=== PATIENT | female | born 2005 | race Two or more races ===

== ENCOUNTER 2025-03-15 07:05 | Inpatient (IN) | payer BC ==
[2025-03-15] MEDS ORDERED: Sodium Chloride 0.9% 10 ML Syringe FLUSH PRN ×2 (08:21→20:52)
[2025-03-15] MEDS ORDERED: Ondansetron 4 MG/2 ML SDV IVPUSH PRN ×2 (08:21→22:13)
[2025-03-15] MEDS ORDERED: Oxytocin/0.9 % Sodium Chloride 30 UNIT/500 ML BAG IV SCH (08:30)
[2025-03-15] MEDS: Nalbuphine 10 MG/1 ML Vial IVPUSH PRN (08:34)
[2025-03-15] MEDS: Sodium Chloride 0.9% 10 ML Syringe FLUSH SCH (08:35)
[2025-03-15 08:56] LABS: MEAN PLATELET VOLUME 10.3 fl (9.4-12.3); NRBC ABSOLUTE 0.02 (0.00-0.02); NRBC PERCENT 0.1 % (0.0-0.2); PLATELET COUNT,PLT 265 K/mm3 (150-400); RED BLOOD CELL COUNT 3.97 M/mm3 (4.10-5.30); WHITE BLOOD CELL COUNT,WBC 22.76 K/mm3 (3.9-11.3)
[2025-03-15] MEDS: Lactated Ringers 1,000 ML IV SCH (15:10)
[2025-03-15] MEDS: Oxytocin/0.9 % Sodium Chloride 30 UNIT/500 ML BAG IV SCH (15:16)
[2025-03-15] MEDS ORDERED: ePHEDrine 50 MG/ML SDV IVPUSH PRN (18:59)
[2025-03-15] MEDS ORDERED: diphenhydrAMINE 50 MG/ML SDV IVPUSH PRN ×2 (18:59→22:13)
[2025-03-15] MEDS: Ropivacaine 200 MG in Premix Bag 1 BAG EPIDUR PRN (19:15)
[2025-03-15] MEDS ORDERED: Ondansetron 4 MG/2 ML SDV ONE (20:40)
[2025-03-15] MEDS ORDERED: Ropivacaine 0.5% 5 MG/ML 30 ML SDV ONE ×2 (20:40→21:41)
[2025-03-15] MEDS ORDERED: Oxytocin 10 Units/1 ML SDV ONE (20:40)
[2025-03-15] MEDS ORDERED: Ketorolac 30 MG/ML SDV ONE (20:40)
[2025-03-15] MEDS ORDERED: Morphine PF 10 MG/10 ML SDV ONE (20:41)
[2025-03-15] MEDS ORDERED: fentaNYL 100 MCG/2 ML SDV ONE (20:41)
[2025-03-15] MEDS ORDERED: Lactated Ringers 1,000 ML IV SCH (21:00)
[2025-03-15] MEDS ORDERED: Sodium Chloride 0.9% 10 ML Syringe FLUSH SCH (21:00)
[2025-03-15] MEDS ORDERED: Dexamethasone 4 MG/ML SDV ONE (21:41)
[2025-03-15] MEDS ORDERED: fentaNYL 100 MCG/2 ML SDV IVPUSH PRN (22:13)
[2025-03-16] MEDS ORDERED: ePHEDrine 50 MG/ML SDV IVPUSH PRN (00:09)
[2025-03-16] MEDS ORDERED: Naloxone 0.4 MG/ML SDV IVPUSH PRN (00:09)
[2025-03-16] MEDS ORDERED: diphenhydrAMINE 50 MG/ML SDV IVPUSH PRN (00:09)
[2025-03-16] MEDS: Clindamycin Phosphate in D5W 900 MG in Premix Bag 1 BAG IV SCH (00:47)
[2025-03-16] MEDS: Ketorolac 30 MG/ML SDV IVPUSH SCH (03:46)
[2025-03-16 10:00] LABS: GROUP B STREP BY PCR NEGATIVE (NEGATIVE)
[2025-03-17 10:06] LABS: MEAN PLATELET VOLUME 10.1 fl (9.4-12.3); NRBC ABSOLUTE 0.03 (0.00-0.02); NRBC PERCENT 0.1 % (0.0-0.2); PLATELET COUNT,PLT 267 K/mm3 (150-400); RED BLOOD CELL COUNT 3.38 M/mm3 (4.10-5.30); WHITE BLOOD CELL COUNT,WBC 22.23 K/mm3 (3.9-11.3)
[2025-03-17 11:46] LABS: HIV 1,2 COMBO AG/AB CIA W/RFLX Negative (Negative)
[2025-03-17 15:43] LABS: HEP B SURFACE AG Negative (Negative)
[2025-03-17 18:42] LABS: HCV AB BY CIA INTERP Negative (Negative); HEPC AB BY CIA INDEX 0.08 IV
[2025-03-18 08:58] VITALS: BP 113/61; PULSE 97
== END 2025-03-18 13:40 | disposition home or self-care (01) | DRG 540 ==
LOC: JD.OBCHECK 07:05 → JD.OB 07:06 → JD.OBCHECK 10:20 → JD.OB 10:20 → OBSVTOIN 21:24 → JD.OB 21:25
PROVIDERS: ADMIT Obstetrics & Gynecology; ATTEND Obstetrics & Gynecology
PROC: 3E0R3BZ Introduction of Anesthetic Agent into Spinal Canal, Percutaneous Approach (ICD-10-PCS; principal; 2025-03-15 21:00)
PROC: 10D00Z1 Extraction of Products of Conception, Low, Open Approach (ICD-10-PCS; principal; 2025-03-15 21:00)
DX: O48.0 Post-term pregnancy (principal); Z3A.41 41 weeks gestation of pregnancy; Z37.0 Single live birth; O41.1230 Chorioamnionitis, third trimester, not applicable or unspecified; O62.1 Secondary uterine inertia; Z79.899 Other long term (current) drug therapy
CPT/HCPCS: 36415; 51702; 59025; 82947; 85027; 86592; 86762; 86803; 86850; 86900; 86901; 87340; 87389; 87653; A9270-GY; J0665; J0690; J0736; J1100; J1580; J1885; J2210; J2274; J2300; J2405; J2590; J2795; J3010; J7120; J7121; J7999